=== PATIENT | female | born 1990 | race Two or more races ===

== ENCOUNTER 2022-03-04 05:54 | Day surgery (SDC) | payer OTHER | END 2022-03-04 10:50 | disposition home or self-care (01) | LOC: AMB-ENDOS 05:54 | PROVIDERS: ATTEND Surgery | DX: R10.13 Epigastric pain (principal); E66.09 Other obesity due to excess calories; K29.70 Gastritis, unspecified, without bleeding; K44.9 Diaphragmatic hernia without obstruction or gangrene; K31.7 Polyp of stomach and duodenum ==